=== PATIENT | male | born 1995 | race Caucasian/White ===

== ENCOUNTER 2017-05-04 13:06 | Outpatient (CLI) | payer BC ==
--- NOTE | 2017-05-08 19:32 | Cardiology Report ---
APPROVED REPORT EKG Measurement Heart [id number] Normal sinus rhythm with sinus arrhythmia Rightward axis Nonspecific T wave abnormality Abnormal ECG
== END 2017-05-04 15:06 | disposition home or self-care (01) ==
LOC: CAR 13:06
DX: I51.4 Myocarditis, unspecified (principal)
CPT/HCPCS: 93005